=== PATIENT | female | born 1970 | race Caucasian/White ===

== ENCOUNTER 2020-10-16 11:16 | Emergency (ER) | payer BC ==
[~2020-10-16] VITALS: Ht 167.6 cm; Wt 87.4 kg
--- NOTE | 2020-10-16 11:54 | PHYS DOC ---
Past History Past Medical History: Arthritis, Hypertension Past Surgical History: Other Alcohol Use: Rarely General Adult EDM: Chief Complaint: CHEST PAIN HPI: HPI: Patient is a 50-year-old female who presented to ER for evaluation of chest pain, numbness around her mouth and her finger. Patient was diagnosed with COVID-19 infection on October 04, she was quarantined at home, Today is her first date back to work. Patient works as a nurse at the [employer]. Patient denies any history of heart disease, no history of diabetic. Patient denies any trouble breathing at this time. Patient says she feels Woozy when she was on her feet while she was at work this morning. Review of Systems: Review of Systems: Constitutional: Denies fever or chills Eyes: Denies change in visual acuity HENT: Denies nasal congestion or sore throat Respiratory: Denies cough or shortness of breath Cardiovascular: Positive for chest chest pain GI: Denies abdominal pain, nausea, vomiting, bloody stools or diarrhea : Denies dysuria Musculoskeletal: Denies back pain or joint pain Integument: Denies rash Neurologic: Denies headache, focal weakness or sensory changes Endocrine: Denies polyuria or polydipsia Lymphatic: Denies swollen glands Psychiatric: Denies depression or anxiety Allergies: Allergies: Allergies Coded Allergies Type Severity Reaction Last Updated Verified No Known Drug Allergies 10/16/20 No Physical Exam: PE: Constitutional: Well developed, well nourished, no acute distress, non-toxic appearance. [] HENT: Normocephalic, atraumatic, bilateral external ears normal, oropharynx moist, no oral exudates, nose normal. [] Eyes: PERRLA, EOMI, conjunctiva normal, no discharge. [] Neck: Normal range of motion, no tenderness, supple, no stridor. [] Cardiovascular:Heart rate regular rhythm, no murmur [] Lungs & Thorax: Bilateral breath sounds clear to auscultation [] Abdomen: Bowel sounds normal, soft, no tenderness, no masses, no pulsatile masses. [] Skin: Warm, dry, no erythema, no rash. [] Back: No tenderness, no CVA tenderness. [] Extremities: No tenderness, no cyanosis, no clubbing, ROM intact, no edema. [] Neurologic: Alert and oriented X 3, normal motor function, normal sensory function, no focal deficits noted. [] Psychologic: Affect normal, judgement normal, mood normal. [] Current Patient Data: Vital Signs: Vital Signs Date Time Temp Pulse Resp B/P (MAP) Pulse Ox O2 Delivery O2 Flow Rate FiO2 10/16/20 11:32 97.7 80 16 136/92 (107) 100 Room Air EKG: EKG: EKG was done at 1128, heart rate of 74 bpm, sinus rhythm, no ST segment ovation Radiology/Procedures: Radiology/Procedures: [][address] [id number] IMAGING REPORT Signed PATIENT: DAVION VÁZQUEZ MACCOUNT: [id number] : 1970 LOCATION: ER AGE: 50 SEX: F EXAM STATUS: REG ER ORD. PHYSICIAN: ELISABETH MELVIN DO REASON: CHEST PAIN PROCEDURE: PORTABLE CHEST 1V XR CHEST 1V CLINICAL INDICATIONS: Reason: CHEST PAIN COMPARISON: None available. Findings: There is elevation of the right hemidiaphragm. There is lucency of the medial angle of the left lung base which could be due to the hiatal hernia. The adjacent left hemidiaphragm is not well visualized and this most likely is due to atelectasis related to the hiatal hernia. No pleural effusion or pneumothorax is seen. Heart size is unremarkable. IMPRESSION: Elevation of the right hemidiaphragm. Hiatal hernia. Electronically signed by: Opal Lorenz MD (10/16/2020 12:14 PM) [id number] DICTATED AND SIGNED BY: OPAL LORENZ MD DATE: 10/16/20 1212 CC: PCP,NO; ELISABETH MELVIN DO ~MTH0 0 Heart Score: Risk Factors: Risk Factors: DM, Current or recent (<one month) smoker, HTN, HLP, family history of CAD, obesity. Risk Scores: Score 0 - 3: 2.5% MACE over next 6 weeks - Discharge Home Score 4 - 6: 20.3% MACE over next 6 weeks - Admit for Clinical Observation Score 7 - 10: 72.7% MACE over next 6 weeks - Early Invasive Strategies Course & Med Decision Making: Course & Med Decision Making Pertinent Labs and Imaging studies reviewed. (See chart for details) Patient is a 50-year-old female who presented to ER due to epigastric chest pain that been going on off and on for several months. X-ray of her chest showed that she had evidence of a hiatal hernia. Patient most likely has gastric acid reflux, gastritis. Patient will be discharged home with medication for. Dragmelanie Disclaimer: Devang Disclaimer: This electronic medical record was generated, in whole or in part, using a voice recognition dictation system. Departure Departure: Impression: Primary Impression: Gastritis Additional Impression: Hypokalemia Disposition: 01 DC HOME SELF CARE/HOMELESS Condition: IMPROVED Referrals: PCP,TAYE (PCP) FOLLOW UP WITH YOUR DOCTOR NEEDED Patient Instructions: Gastritis, Adult, Hypokalemia Additional Instructions: Thank you for visiting our Emergency Department. We appreciate you trusting us with your care. If any additional problems come up don't hesitate to return to visit us. Please follow up with your primary care provider so they can plan additional care if needed and know about the problem that you had. If symptoms worsen come back to the Emergency Department. Any concerning symptoms that start such as chest pain, shortness of air, weakness or numbness on one side of the body, running high fevers or any other concerning symptoms return to the ER. Scripts Sucralfate (CARAFATE) 1 Gm Tablet 1 TAB PO QID for gastritis for 14 Days, #56 TAB 0 Refills Prov: ELISABETH MELVIN DO 10/16/20 Omeprazole Magnesium (PRILOSEC OTC) 20 Mg Tablet.dr 20 MG PO DAILY for gastritis for 30 Days, #30 TAB Prov: ELISABETH MELVIN DO 10/16/20 ELISABETH MELVIN DO Oct 16, 2020 11:54
[2020-10-16] MEDS ORDERED: IV NORMAL SALINE 1,000ML 1,000 ML IV ONE (12:00)
[2020-10-16 12:02] LABS: BASO # 0.1 x10^3/uL (0.0-0.2); BASO % 1 % (0-3); EOS # 0.1 x10^3/uL (0.0-0.7); EOS % 2 % (0-3); HEMATOCRIT 47.1 % (36.0-47.0); HEMOGLOBIN 15.6 g/dL (12.0-15.5); LYMPH # 2.5 x10^3/uL (1.0-4.8); LYMPH % 29 % (24-48); MEAN CORPUSCULAR HEMOGLOBIN 28 pg (25-35); MEAN CORPUSCULAR HGB CONC 33 g/dL (31-37); MEAN CORPUSCULAR VOLUME 83 fL (79-100); MONO # 0.6 x10^3/uL (0.0-1.1); MONO % 6 % (0-9); NEUT # 5.5 x10^3uL (1.8-7.7); NEUT % 63 % (31-73); PLATELET COUNT 374 x10^3/uL (140-400); RED BLOOD COUNT 5.67 x10^6/uL (3.50-5.40); RED CELL DISTRIBUTION WIDTH 15.4 % (11.5-14.5); WHITE BLOOD COUNT 8.8 x10^3/uL (4.0-11.0)
[2020-10-16 12:10] LABS: CALCIUM 8.8 mg/dL (8.5-10.1); CREATININE 0.8 mg/dL (0.6-1.0); GFR 76.2
--- NOTE | 2020-10-16 12:17 | RAD ---
XR CHEST 1V CLINICAL INDICATIONS: Reason: CHEST PAIN COMPARISON: None available. Findings: There is elevation of the right hemidiaphragm. There is lucency of the medial angle of the left lung base which could be due to the hiatal hernia. The adjacent left hemidiaphragm is not well v isualized and this most likely is due to atelectasis related to the hiatal hernia. No pleural effusio n or pneumothorax is seen. Heart size is unremarkable. IMPRESSION: Elevation of the right hemidiaphragm. Hiatal hernia. Electronically signed by: Kan Lorenz MD (10/16/2020 12:14 PM) [id number]
--- NOTE | 2020-10-16 12:19 | EKG ---
[address] [address] Test Date: 2020-10-16 Test Time: 11:28:43 Pat Name: DAVION VÁZQUEZ Department: Room: Gender: F [employer] In[employer]: : 1970 Requested By: ELISABETH MELVIN Order Number: [id number] Reading MD: Measurements Intervals [place] Rate: 74 P: 27 SC: 168 QRS: -15 QRSD: 86 T: 19 QT: 396 QTc: 440 Interpretive Statements SINUS RHYTHM LEFTWARD AXIS OTHERWISE NORMAL ECG RI6.02 No previous ECG available for comparison
[2020-10-16 12:21] LABS: ALBUMIN 4.1 g/dL (3.4-5.0); ALBUMIN/GLOBULIN RATIO 0.9 (1.0-1.7); MAGNESIUM 1.8 mg/dL (1.8-2.4); TOTAL BILIRUBIN 0.4 mg/dL (0.2-1.0); TOTAL PROTEIN 8.6 g/dL (6.4-8.2)
[2020-10-16] MEDS ORDERED: FAMOTIDINE 20 MG/2 ML VIAL IVP ONE (12:45)
[2020-10-16] MEDS ORDERED: LIDO:MAALOX 1:1 20 ML SINGLE DOSE. PO ONE (12:45)
[2020-10-16] MEDS ORDERED: POTASSIUM CHLORIDE 10 MEQ TABLET.ER. PO ONE (13:00)
[2020-10-16] MEDS ORDERED: SUCR1TAB35 PO (13:27)
[2020-10-16] MEDS ORDERED: OMEP20TA63 PO (13:27)
[2020-10-16 13:35] VITALS: BP 132/78
== END 2020-10-16 13:35 | disposition home or self-care (01) ==
LOC: ER 11:16
DX: E87.6 Hypokalemia (principal); K29.70 Gastritis, unspecified, without bleeding; M19.90 Unspecified osteoarthritis, unspecified site; I10 Essential (primary) hypertension
CPT/HCPCS: 36415; 71045; 80053; 83735; 83880; 84484; 85025; 93005; 96361; 96374; 99285; J3490; J7030